=== PATIENT | female | born 1985 | race Caucasian/White ===

== ENCOUNTER 2016-08-28 11:13 | Emergency (ER) | payer OTHER ==
--- NOTE | 2016-08-28 12:44 | EDDOCDS ---
Physician Documentation [facility] Name: Nancy Hernandez Age: 30 yrs Sex: Female : 1985 Arrival Date: 08/28/2016 Time: 11:13 Bed Private MD: Ritu Solis D Disposition: 08/28/16 12:23 Discharged to Home/Self Care. Impression: Nausea and vomiting, Diarrhea, unspecified, related conditions, unspecified, first trimester. - Condition is Stable. - Discharge Instructions: First Trimester of , and Smoking. - Medication Reconciliation form. - Follow up: Alexandru Prakash MD; When: Call to arrange an appointment; Reason: Recheck today's complaints, Continuance of care. - Problem is an ongoing problem. - Symptoms are unchanged. Historical: - Allergies: No known drug Allergies; - Home Meds: 1. aspirin 81 mg Oral tab 1 tab once daily (Last dose: 08/27/2016) 2. Prometrium 200 mg oral cap 1 cap once daily (Last dose: 08/27/2016) 3. Vitamin Oral tab 1 tab once daily (Last dose: 08/27/2016) - PMHx: Scoliosis; - PSHx: none; - Social history: Smoking status: Patient uses tobacco products, light tobacco smoker. No barriers to communication noted, The patient speaks fluent [place]. - Family history: No immediate family members are acutely ill. - : The pt / caregiver states he / she is not on anticoagulants. Home medication list is obtained from the patient. - Exposure Risk Screening:: None identified. 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 11 in. (149.86 cm) (R); Pain 3/10; 11:16 Body Mass Index 23.83 (53.52 kg, 149.86 cm) elp MDM: 11:38 US 1st trimester Ordered. EDMS 12:06 Financial registration complete. lg 12:07 [facility] [place] Agreement was scanned into [employer] and attached to record. jp5 12:07 Undo -Financial registration. jp5 12:07 Financial registration complete. jp5 Signatures: Dispatcher [employer] EDElliot Funez, RN RN Soraida Zimmer RN RN Gila Sagastume, Reg Reg lg Maico Frias, PA-C PA-C cc10 Ivis Segovia jp5 The chart was reviewed and I authenticate all verbal orders and agree with the evaluation and treatment provided.Attachments: 12:07 [facility] [place] Agreement jp5 MTDD
--- NOTE | 2016-08-28 12:44 | REP ---
FIRST TRIMESTER ULTRASOUND: Real-time sonographic evaluation of the gravid uterus is performed utilizing transabdominal technique. There is a single living intrauterine gestation with the estimated gestational age of 11 weeks based on today's crown-rump length of 41 mm, EDC 03/19/2017. heart rate 173 beats per minute. There is a subchorionic hemorrhage on the left measuring 5.9 x 2.6 x 4.1 cm. Followup is suggested. Signed by Elliot Olson MD 08/28/2016 12:46 P
--- NOTE | 2016-08-28 12:44 | EDDOCDS ---
Nurse's Notes [facility] Name: Nancy Hernandez Age: 30 yrs Sex: Female : 1985 Arrival Date: 08/28/2016 Time: 11:13 Bed PR Private MD: Ritu Solis D Diagnosis: Nausea and vomiting;Diarrhea, unspecified; related conditions, unspecified, first trimester Presentation: 08/28 11:17 Presenting complaint: Patient states: 10 weeks , ate some food 2 days [facility] ago , nausea started yesterday with vomiting and diarrhea, stomach feels crampy. denies vaginal bleeding. Risk factors: the patient reports no vaginal bleeding. Adult Sepsis Screening: The patient does not have new or worsening altered mentation. Patient's respiratory rate is less than 22. Systolic blood pressure is greater than 100. Patient has a qSOFA score of 0- Negative Sepsis Screen. Suicide/Homicide risk assessment- the patient denies having any suicidal and/or homicidal ideations and does not present with any other emotional, behavioral or mental health complaints. Status: Patient is not a business services vice president or dependent. Transition of care: patient was not received from another setting of care. 11:17 Acuity: ZAIN Level 3 [facility] 11:17 Method Of Arrival: Walkin/Carried/Asstd [facility] Triage Assessment: 11:21 General: Appears in no apparent distress, Behavior is appropriate for age. Pain: [facility] Location: umbilical area Pain currently is 2 out of 10 on a pain scale. Quality of pain is described as gnawing. Pt Declines HIV testing. Neurological: Level of Consciousness is awake, alert, Oriented to person, place, time. Respiratory: Airway is patent Respiratory effort is even, unlabored, Respiratory pattern is regular, symmetrical. GI: Reports diarrhea, nausea, vomiting, Pain is 2 out of 10 on a pain scale. : Denies vaginal bleeding. Derm: Skin is pink, warm & dry. 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 aspirin 81 mg Oral tab 1 tab once daily (Last dose: 08/27/2016) 2. Prometrium 200 mg oral cap 1 cap once daily (Last dose: 08/27/2016) 3. Vitamin Oral tab 1 tab once daily (Last dose: 08/27/2016) - PMHx: Scoliosis; - PSHx: none; - Social history: Smoking status: Patient uses tobacco products, light tobacco smoker. No barriers to communication noted, The patient speaks fluent [place]. - Family history: No immediate family members are acutely ill. - : The pt / caregiver states he / she is not on anticoagulants. Home medication list is obtained from the patient. - Exposure Risk Screening:: None identified. Screenin:41 Screening information is obtained from the patient. Primary language is [place]. Fall dwg risk: No risks identified. Assistance ADL's: requires no assistance with activities of daily living. Abuse/DV Screen: The patient / caregiver reports he/she is: not in a situation that causes fear, pain or injury. Nutritional screening: No deficits noted. Advance Directives: Currently, there is no health care proxy. There is no active DNR order. There is no living will. There is no Power of Fitness Assistant. Advance directive information has not previously been placed in an [facility] medical record. Further advance directive information is declined. home support is adequate. Assessment: 12:40 The patient / caregiver is instructed regarding the plan of care and ED course. [facility] Physical assessment to be completed by PA/JENIFFER. Vital Signs: 11:16 BP 132 / 88; Pulse 81; Resp 18; Temp 98.6(O); Pulse Ox 99% on R/A; Weight 53.52 kg (R); elp Height 4 ft. 11 in. (149.86 cm) (R); Pain 3/10; 11:16 Body Mass Index 23.83 (53.52 kg, 149.86 cm) [facility] Vitals: 11:16 Log In Time: August 28, 2016 at 11:14. [facility] ED Course: 11:15 Patient visited by Nora Valera PCA. elp 11:15 Patient moved to Waiting el 11:16 Ritu Solis is Private Physician. elp 11:16 Patient visited by Nora Valera PCA. elp 11:16 Patient moved to Pre E elp 11:19 Triage Initiated [facility] 11:23 Maico Frias PA-C is [facility]. cc10 11:23 Emilie Morales MD is Attending Physician. cc10 11:23 Patient moved to Triage 3 [facility] 11:33 Patient visited by Maico Frias PA-C. cc10 11:33 Patient visited by Maico Frias PA-C. cc10 11:47 Patient moved to Ultrasound am10 11:50 Patient moved to TR3 rs6 11:50 Patient moved to Ultrasound rs6 11:58 Patient moved to TR3 am10 12:07 [facility] Payment Agreement was scanned into [employer] and attached to record. jp5 12:23 Alexandru Prakash MD is Referral Physician. cc10 12:35 Patient moved to PR1 / 25 dwg 12:42 No IV's were initiated during this patient's visit. No procedures done that require dwg assistance. 12:43 Patient has correct armband on for positive identification. Call light in reach. dwg Order Results: There are currently no results for this order. Outcome: 12:23 Discharge ordered by Provider. cc10 12:42 The following High Risk Discharge criteria are identified: None. Discharged to home dwg ambulatory. Condition: good Condition: stable. Ultrasound Study completed. 12:42 Discharge Assessment: Patient awake, alert and oriented x 3. No cognitive and/or dwg functional deficits noted. Patient verbalized understanding of disposition instructions. patient administered narcotics - no. The following High Risk Discharge criteria are identified: None. Property sent home with patient. 12:43 Patient left the ED. dwg Signatures: Elliot Lawrence RN RN [facility] Soraida Monsalve RN RN [facility] Angélica Ledezma am10 Nora Valera, SEAFOOD PACKER SEAFOOD PACKER elp Maico Frias PA-C PA-C cc10 Niki Crawford, SEAFOOD PACKER SEAFOOD PACKER rs6 Ivis Segovia jp5 MTDD
--- NOTE | 2016-08-30 13:45 | EDDOCDS ---
Nurse's Notes [facility] Name: Nancy Hernandez Age: 30 yrs Sex: Female : 1985 Arrival Date: 08/28/2016 Time: 11:13 Bed PR Private MD: Ritu Solis D Diagnosis: Nausea and vomiting;Diarrhea, unspecified; related conditions, unspecified, first trimester Presentation: 08/28 11:17 Presenting complaint: Patient states: 10 weeks , ate some food 2 days [facility] ago , nausea started yesterday with vomiting and diarrhea, stomach feels crampy. denies vaginal bleeding. Risk factors: the patient reports no vaginal bleeding. Adult Sepsis Screening: The patient does not have new or worsening altered mentation. Patient's respiratory rate is less than 22. Systolic blood pressure is greater than 100. Patient has a qSOFA score of 0- Negative Sepsis Screen. Suicide/Homicide risk assessment- the patient denies having any suicidal and/or homicidal ideations and does not present with any other emotional, behavioral or mental health complaints. 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 Transition of care: patient was not received from another setting of care. 11:17 Acuity: ZAIN Level 3 [facility] 11:17 Method Of Arrival: Walkin/Carried/Asstd [facility] Triage Assessment: 11:21 General: Appears in no apparent distress, Behavior is appropriate for age. Pain: [facility] Location: umbilical area Pain currently is 2 out of 10 on a pain scale. Quality of pain is described as gnawing. Pt Declines HIV testing. Neurological: Level of Consciousness is awake, alert, Oriented to person, place, time. Respiratory: Airway is patent Respiratory effort is even, unlabored, Respiratory pattern is regular, symmetrical. GI: Reports diarrhea, nausea, vomiting, Pain is 2 out of 10 on a pain scale. : Denies vaginal bleeding. Derm: Skin is pink, warm & dry. 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 aspirin 81 mg Oral tab 1 tab once daily (Last dose: 08/27/2016) 2. Prometrium 200 mg oral cap 1 cap once daily (Last dose: 08/27/2016) 3. Vitamin Oral tab 1 tab once daily (Last dose: 08/27/2016) - PMHx: Scoliosis; - PSHx: none; - Social history: Smoking status: Patient uses tobacco products, light tobacco smoker. No barriers to communication noted, The patient speaks fluent [place]ian. - Family history: No immediate family members are acutely ill. - : The pt / caregiver states he / she is not on anticoagulants. Home medication list is obtained from the patient. - Exposure Risk Screening:: None identified. Screenin:41 Screening information is obtained from the patient. Primary language is Lithuanian. Fall dwg risk: No risks identified. Assistance ADL's: requires no assistance with activities of daily living. Abuse/DV Screen: The patient / caregiver reports he/she is: not in a situation that causes fear, pain or injury. Nutritional screening: No deficits noted. Advance Directives: Currently, there is no health care proxy. There is no active DNR order. There is no living will. There is no Power of Marketing Automation Analyst. Advance directive information has not previously been placed in an [facility] medical record. Further advance directive information is declined. home support is adequate. Assessment: 12:40 The patient / caregiver is instructed regarding the plan of care and ED course. [facility] Physical assessment to be completed by PA/JENIFFER. Vital Signs: 11:16 BP 132 / 88; Pulse 81; Resp 18; Temp 98.6(O); Pulse Ox 99% on R/A; Weight 53.52 kg (R); elp Height 4 ft. 11 in. (149.86 cm) (R); Pain 3/10; 11:16 Body Mass Index 23.83 (53.52 kg, 149.86 cm) [facility] Vitals: 11:16 Log In Time: August 28, 2016 at 11:14. [facility] ED Course: 11:15 Patient visited by Nora Valera PCA. elp 11:15 Patient moved to Waiting el 11:16 Ritu Solis is Private Physician. elp 11:16 Patient visited by Nora Valera PCA. elp 11:16 Patient moved to Pre E elp 11:19 Triage Initiated [facility] 11:23 Maico Frias PA-C [facility]. cc10 11:23 Emilie Morales MD is Attending Physician. cc10 11:23 Patient moved to Triage 3 [facility] 11:33 Patient visited by Maico Frias PA-C. cc10 11:33 Patient visited by Maico Frias PA-C. cc10 11:47 Patient moved to Ultrasound am10 11:50 Patient moved to TR3 rs6 11:50 Patient moved to Ultrasound rs6 11:58 Patient moved to TR3 am10 12:07 [facility] Payment Agreement was scanned into [employer] and attached to record. jp5 12:23 Alexandru Prakash MD is Referral Physician. cc10 12:35 Patient moved to PR1 / 25 dwg 12:42 No IV's were initiated during this patient's visit. No procedures done that require dwg assistance. 12:43 Patient has correct armband on for positive identification. Call light in reach. dwg 12:56 US 1st trimester Returned. EDMS 14:26 T-Sheet-- Draft Copy was scanned into [employer] and attached to record. gb Order Results: Radiology Order: US 1st trimester Test: US 1st trimester REASON FOR EXAMINATION: Abdomen Pain; FIRST TRIMESTER ULTRASOUND:; ; Real-time sonographic evaluation of the gravid uterus is performed utilizing; transabdominal technique.; ; There is a single living intrauterine gestation with the estimated gestational; age of 11 weeks based on today's crown-rump length of 41 mm, EDC 03/19/2017.; heart rate 173 beats per minute. There is a subchorionic hemorrhage on the; left measuring 5.9 x 2.6 x 4.1 cm. Followup is suggested.; ; ; Signed by; Elliot Olson MD 08/28/2016 12:46 P; Outcome: 12:23 Discharge ordered by Provider. cc10 12:42 The following High Risk Discharge criteria are identified: None. Discharged to home dwg ambulatory. Condition: good Condition: stable. Ultrasound Study completed. 12:42 Discharge Assessment: Patient awake, alert and oriented x 3. No cognitive and/or dwg functional deficits noted. Patient verbalized understanding of disposition instructions. patient administered narcotics - no. The following High Risk Discharge criteria are identified: None. Property sent home with patient. 12:43 Patient left the ED. dwg Signatures: Dispatcher [employer] Elliot Sky, RN RN hennyg Soraida Monsalve, RN RN kpj Jennifer Peters, Reg Reg gb [place], Angélica am10 Olesyaen, Nora, LIFE INSURANCE ACTUARY LIFE INSURANCE ACTUARY elp Rodriguez, Maico, PA-C PA-C cc10 Yvette, Niki, LIFE INSURANCE ACTUARY LIFE INSURANCE ACTUARY rs6 Ivis Segovia jp5 Chart Complete MTDD
--- NOTE | 2016-08-30 13:45 | EDDOCDS ---
Physician Documentation [facility] Name: Nancy Hernandez Age: 30 yrs Sex: Female : 1985 Arrival Date: 08/28/2016 Time: 11:13 Bed Private MD: Ritu Solis D Disposition: 08/28/16 12:23 Discharged to Home/Self Care. Impression: Nausea and vomiting, Diarrhea, unspecified, related conditions, unspecified, first trimester. - Condition is Stable. - Discharge Instructions: First Trimester of , and Smoking. - Medication Reconciliation form. - Follow up: Alexandru Prakash MD; When: Call to arrange an appointment; Reason: Recheck today's complaints, Continuance of care. - Problem is an ongoing problem. - Symptoms are unchanged. Historical: - Allergies: No known drug Allergies; - Home Meds: 1. aspirin 81 mg Oral tab 1 tab once daily (Last dose: 08/27/2016) 2. Prometrium 200 mg oral cap 1 cap once daily (Last dose: 08/27/2016) 3. Vitamin Oral tab 1 tab once daily (Last dose: 08/27/2016) - PMHx: Scoliosis; - PSHx: none; - Social history: Smoking status: Patient uses tobacco products, light tobacco smoker. No barriers to communication noted, The patient speaks fluent [place]ian. - Family history: No immediate family members are acutely ill. - : The pt / caregiver states he / she is not on anticoagulants. Home medication list is obtained from the patient. - Exposure Risk Screening:: None identified. 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 11 in. (149.86 cm) (R); Pain 3/10; 11:16 Body Mass Index 23.83 (53.52 kg, 149.86 cm) elp MDM: 11:38 US 1st trimester Ordered. EDMS 12:06 Financial registration complete. lg 12:07 [facility] Payment Agreement was scanned into [employer] and attached to record. jp5 12: Undo -Financial registration. jp5 12: Financial registration complete. jp5 14:26 T-Sheet-- Draft Copy was scanned into [employer] and attached to record. gb Signatures: Dispatcher [employer] EDMS Elliot Lawrence, RN RN Soraida Zimmer RN RN kpJennifer Whitlock, Reg Reg gb Gila Carrillo, Reg Reg lg Maico Frias, PA-C PA-C cc10 Ivis Segovia jp5 The chart was reviewed and I authenticate all verbal orders and agree with the evaluation and treatment provided.Attachments: 12:07 [facility] Payment Agreement jp5 14:26 T-Sheet-- Draft Copy gb Chart Complete MTDD
--- NOTE | 2016-08-30 13:45 | EDDOCDS ---
Physician Documentation [facility] Name: Nancy Hernandez Age: 30 yrs Sex: Female : 1985 Arrival Date: 08/28/2016 Time: 11:13 Bed Private MD: Ritu Solis D Disposition: 08/28/16 12:23 Discharged to Home/Self Care. Impression: Nausea and vomiting, Diarrhea, unspecified, related conditions, unspecified, first trimester. - Condition is Stable. - Discharge Instructions: First Trimester of , and Smoking. - Medication Reconciliation form. - Follow up: Alexandru Prakash MD; When: Call to arrange an appointment; Reason: Recheck today's complaints, Continuance of care. - Problem is an ongoing problem. - Symptoms are unchanged. Historical: - Allergies: No known drug Allergies; - Home Meds: 1. aspirin 81 mg Oral tab 1 tab once daily (Last dose: 08/27/2016) 2. Prometrium 200 mg oral cap 1 cap once daily (Last dose: 08/27/2016) 3. Vitamin Oral tab 1 tab once daily (Last dose: 08/27/2016) - PMHx: Scoliosis; - PSHx: none; - Social history: Smoking status: Patient uses tobacco products, light tobacco smoker. No barriers to communication noted, The patient speaks fluent [place]guillan. - Family history: No immediate family members are acutely ill. - : The pt / caregiver states he / she is not on anticoagulants. Home medication list is obtained from the patient. - Exposure Risk Screening:: None identified. 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 11 in. (149.86 cm) (R); Pain 3/10; 11:16 Body Mass Index 23.83 (53.52 kg, 149.86 cm) elp MDM: 11:38 US 1st trimester Ordered. EDMS 12:06 Financial registration complete. lg 12:07 [facility] Payment Agreement was scanned into [employer] and attached to record. jp5 12: Undo -Financial registration. jp5 12: Financial registration complete. jp5 14:26 T-Sheet-- Draft Copy was scanned into [employer] and attached to record. gb Signatures: Dispatcher [employer] EDMS Elliot Lawrence, RN RN Soraida Zimmer RN RN kpJennifer Whitlock, Reg Reg gb Gila Carrillo, Reg Reg lg Maico Frias, PA-C PA-C cc10 Ivis Segovia jp5 The chart was reviewed and I authenticate all verbal orders and agree with the evaluation and treatment provided.Attachments: 12:07 [facility] Payment Agreement jp5 14:26 T-Sheet-- Draft Copy gb Chart Complete MTDD
== END 2016-08-28 12:43 | disposition home or self-care (01) ==
LOC: M ED 11:13
DX: O99.89 Other specified diseases and conditions complicating pregnancy, childbirth and the puerperium (principal); R11.2 Nausea with vomiting, unspecified; R19.7 Diarrhea, unspecified; Z3A.10 10 weeks gestation of pregnancy; Z79.899 Other long term (current) drug therapy; Z79.82 Long term (current) use of aspirin; O99.331 Smoking (tobacco) complicating pregnancy, first trimester; F17.210 Nicotine dependence, cigarettes, uncomplicated

== ENCOUNTER → 2016-08-29 | Outpatient (CLI) | payer OTHER ==
[2016-08-29 19:00] LABS: BASO % 0.3 % (0.0-1.0); EOS # 0.1 K/mm3 (0.0-0.50); EOS % 0.5 % (0.0-3.0); LARGE UNSTAINED CELL # 0.1 K/mm3 (0.0-0.4); LARGE UNSTAINED CELL % 0.9 % (0.0-4.0); LYMPH # 2.4 K/mm3 (1.5-6.5); LYMPH % 17.3 % (24.0-44.0); MEAN CORPUSCULAR HGB CONC 34.3 g/dl (32.0-36.5); MEAN CORPUSCULAR VOLUME 96.3 fl (80.0-96.0); MONO # 0.5 K/mm3 (0.0-0.8); MONO % 3.5 % (0.0-5.0); NEUTROPHILS # 10.6 K/mm3 (1.8-7.7); NEUTROPHILS % 77.5 % (36.0-66.0); PLATELET COUNT, AUTOMATED 256 k/mm3 (150-450); RED CELL DISTRIBUTION WIDTH 11.7 % (11.5-14.5); WHITE BLOOD COUNT 13.7 K/mm3 (4.0-10.0)
[2016-08-29 20:26] LABS: CONTROL LINE INT CTR LINE PRESENT; HIV SCRN NEGATIVE (NEGATIVE); HIV SCRN1 NEGATIVE (NEGATIVE)
[2016-09-01 11:31] LABS: HBsAg Prenatal NEGATIVE (NEGATIVE)
== END | disposition home or self-care (01) ==
LOC: M SMT 15:35
PROVIDERS: ATTEND Obstetrics & Gynecology
DX: Z34.83 Encounter for supervision of other normal pregnancy, third trimester (principal); Z36 Encounter for antenatal screening of mother; Z3A.00 Weeks of gestation of pregnancy not specified

== ENCOUNTER 2016-10-09 17:22 | Emergency (ER) | payer OTHER ==
[~2016-10-09] VITALS: Ht 149.9 cm; Wt 57.2 kg
[2016-10-09] MEDS ORDERED: PROGESTER (18:00)
[2016-10-09] MEDS ORDERED: PRENTAB40 PO (18:00)
[2016-10-09] MEDS ORDERED: ASPI81TA85 PO (18:00)
[2016-10-09] MEDS ORDERED: [UNRECOGNIZED DRUG - OTHER] EC (18:00)
[2016-10-09 20:46] LABS: BASO % 0.1 % (0.0-1.0); EOS % 0.3 % (0.0-3.0); LARGE UNSTAINED CELL # 0.2 K/mm3 (0.0-0.4); LARGE UNSTAINED CELL % 0.9 % (0.0-4.0); LYMPH # 2.5 K/mm3 (1.5-6.5); LYMPH % 15.4 % (24.0-44.0); MEAN CORPUSCULAR HEMOGLOBIN 33.3 pg (27.0-33.0); MEAN CORPUSCULAR HGB CONC 35.7 g/dl (32.0-36.5); MEAN CORPUSCULAR VOLUME 93.2 fl (80.0-96.0); MONO # 0.5 K/mm3 (0.0-0.8); MONO % 2.7 % (0.0-5.0); NEUTROPHILS # 13.3 K/mm3 (1.8-7.7); NEUTROPHILS % 80.6 % (36.0-66.0); PLATELET COUNT, AUTOMATED 249 k/mm3 (150-450); RED CELL DISTRIBUTION WIDTH 11.7 % (11.5-14.5); WHITE BLOOD COUNT 16.4 K/mm3 (4.0-10.0)
--- NOTE | 2016-10-09 21:50 | REPUSA ---
HISTORY: Bleeding. TECHNIQUE: Multiple sonographic images were obtained in multiple projections. Transabdominal techniqu e was utilized. COMMENTS: There is a single intrauterine gestation in presentation. The biparietal diameter measures mm. This corresponds to a gestational age of 16 weeks 6 days. The ab dominal circumference and femur length measure cm and mm respectively and are proportionate to the BP D. The HC:AC ratio is normal at 1.21. Estimated weight based on BPD is 168 grams. heart motion was observed, the rate is 153 bpm. The placenta is anterior, and free of the cervical os. There is evidence of chorioamniotic separation /abruption. The amniotic fluid volume is normal. The cervical length is 4.3 cm. IMPRESSION: Single living intrauterine fetus in a vertex position. motion was identified. heart rat e was documented at 153 bpm. The placenta is anterior, with evidence of chorioamniotic separation/abruption. Thank you for your kind referral of this patient. We appreciate the opportunity to participate in thi s patient's care.
[2016-10-10] MEDS: RHOGAM 300 MCG (1500 IU) INJ (J2790) IM SCH (00:40)
[2016-10-10 01:03] VITALS: BP 101/57
== END 2016-10-10 01:07 | disposition home or self-care (01) ==
LOC: M ED 18:48
DX: O20.0 Threatened abortion (principal); Z3A.16 16 weeks gestation of pregnancy; Z79.82 Long term (current) use of aspirin; Z79.899 Other long term (current) drug therapy
CPT/HCPCS: 36415; 76811; 85025; 86850; 86900; 86901; 96372; 99283; J2790

== ENCOUNTER → 2016-10-20 | Outpatient (CLI) | payer OTHER ==
[~2016-10-20] MED LIST: ASPI81TA85 PO; PRENTAB40 PO; PROGESTER; [UNRECOGNIZED DRUG - OTHER] EC
--- NOTE | 2016-10-20 15:51 | REP ---
Obstetric sonography: Limited study. History: Vaginal bleeding. Comparison sonography October 09 2016 showed evidence of subchorionic bleed. Findings: Limited sonography demonstrates a intrauterine gestation in a variable lie. heart rate is recorded at 150 beats per minute. Closed cervical length is 3.8 cm measured trans vaginally. No funneling is seen. A subchorionic bleed is again visualized, more to the left, measuring 9.8 x 1.1 x 4.0 cm. Signed by Daniele Clancy MD 10/20/2016 03:42 P
== END ==
LOC: M RAD 14:26
PROVIDERS: ATTEND Advanced Practice Midwife
DX: O26.852 Spotting complicating pregnancy, second trimester (principal); Z36 Encounter for antenatal screening of mother; Z3A.00 Weeks of gestation of pregnancy not specified

== ENCOUNTER → 2016-10-27 | Outpatient (CLI) | payer OTHER ==
--- NOTE | 2016-10-27 13:20 | REP ---
Clinical: Anatomical evaluation. Comparison: 10/20/2016 . Findings: Examination demonstrates a single live intrauterine in breech presentation. motion is identified by technologist. Placenta is noted anteriorly and grade zero without evidence for placenta previa or abruption. Amniotic fluid volume is normal. Cervix measures 3.0 in length and appears closed. No evidence for nuchal cord. Subchorionic hemorrhage is again identified measuring 11.6 x 0.8 x 1.3 cm and decreased from prior examination. Gestational age by LMP 18 weeks 6 days with STACEY 03/24/2017 . Gestational age by current measurements 19 weeks 4 days with STACEY 03/19/2017 . FHR equals 147 beats per minute. BPD 4.6 cm 19 weeks 6 days HC 16.5 cm 19 weeks 2 days AC 14.0 cm 19 weeks 3 days FL 3.1 cm 19 weeks 4 days HL 3.0 cm 19 weeks 6 days HC/AC ratio 1.18 Estimated weight 294 grams ( 69th percentile). Anatomical assessment demonstrates normal structures including cranium, choroid plexus, cavum, cerebellum/posterior fossa, facial features, lungs, four-chamber heart/ventricular outflow tracts, diaphragm, stomach, cord insertion/three-vessel cord, kidneys/bladder, spine, and extremities. Impression: Single live intrauterine in breech presentation demonstrating appropriate interval growth. Anatomical assessment is complete and normal. Subchorionic hemorrhage decreased in size from prior examination. Signed by Jay Vick MD 10/27/2016 01:12 P
== END ==
LOC: M RAD 11:47
PROVIDERS: ATTEND Advanced Practice Midwife
DX: Z36 Encounter for antenatal screening of mother (principal)

== ENCOUNTER → 2017-01-01 | Outpatient (CLI) | payer OTHER ==
[2017-01-01 17:57] LABS: MEAN CORPUSCULAR HEMOGLOBIN 33.4 pg (27.0-33.0); MEAN CORPUSCULAR HGB CONC 34.4 g/dl (32.0-36.5); RED CELL DISTRIBUTION WIDTH 12.5 % (11.5-14.5); WHITE BLOOD COUNT 14.4 K/mm3 (4.0-10.0)
== END ==
LOC: M SMT 13:06
PROVIDERS: ATTEND Advanced Practice Midwife
DX: Z31.82 Encounter for Rh incompatibility status (principal); Z34.82 Encounter for supervision of other normal pregnancy, second trimester

== ENCOUNTER → 2017-01-05 | Outpatient (CLI) | payer OTHER | LOC: M LAB 07:07 | PROVIDERS: ATTEND Specialist | DX: Z34.82 Encounter for supervision of other normal pregnancy, second trimester (principal); Z36 Encounter for antenatal screening of mother; Z3A.00 Weeks of gestation of pregnancy not specified ==

== ENCOUNTER → 2017-01-06 | Outpatient (CLI) | payer OTHER | LOC: M SMT 14:13 | PROVIDERS: ATTEND Obstetrics & Gynecology | DX: Z34.82 Encounter for supervision of other normal pregnancy, second trimester (principal); Z36 Encounter for antenatal screening of mother; Z3A.00 Weeks of gestation of pregnancy not specified ==

== ENCOUNTER 2017-02-18 22:09 | Emergency (ER) | payer OTHER ==
[~2017-02-18] VITALS: Ht 149.9 cm; Wt 64.5 kg
[2017-02-18] MEDS ORDERED: ACETAMINOPHEN TAB 650MG DOSE (2X325MG) PO ONE (23:30)
[2017-02-19 00:02] VITALS: BP 117/72
--- NOTE | 2017-02-19 07:31 | REP ---
Left wrist four views: There is a nondisplaced transverse fracture of the distal radius. Mineralization is normal. There is no dislocation. The skeletal structures and soft tissues otherwise are unremarkable. Impression: Nondisplaced distal radius fracture. Signed by Elliot Garcia MD 02/19/2017 07:22 A
[2017-02-20] MEDS ORDERED: RANI15TA PO (20:07)
== END 2017-02-19 00:11 | disposition home or self-care (01) ==
LOC: M ED 22:09
DX: O9A.213 Injury, poisoning and certain other consequences of external causes complicating pregnancy, third trimester (principal); S52.502A Unspecified fracture of the lower end of left radius, initial encounter for closed fracture; W19.XXXA Unspecified fall, initial encounter; Y92.009 Unspecified place in unspecified non-institutional (private) residence as the place of occurrence of the external cause; Y93.89 Activity, other specified; Y99.8 Other external cause status; Z3A.35 35 weeks gestation of pregnancy; O24.419 Gestational diabetes mellitus in pregnancy, unspecified control; Z87.891 Personal history of nicotine dependence

== ENCOUNTER 2017-02-20 19:57 | Emergency (ER) | payer OTHER ==
[~2017-02-20] VITALS: Ht 149.9 cm; Wt 63.6 kg
[2017-02-20 19:58] VITALS: BP 125/85
[2017-02-20] MEDS ORDERED: RANI15TA PO (20:07)
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
== END 2017-02-20 21:30 | disposition home or self-care (01) ==
LOC: M ED 19:57
DX: O9A.213 Injury, poisoning and certain other consequences of external causes complicating pregnancy, third trimester (principal); S52.502D Unspecified fracture of the lower end of left radius, subsequent encounter for closed fracture with routine healing; W19.XXXD Unspecified fall, subsequent encounter; Y92.009 Unspecified place in unspecified non-institutional (private) residence as the place of occurrence of the external cause; Y93.89 Activity, other specified; Y99.8 Other external cause status; Z46.89 Encounter for fitting and adjustment of other specified devices; Z87.891 Personal history of nicotine dependence; Z3A.35 35 weeks gestation of pregnancy

== ENCOUNTER → 2017-02-25 | Outpatient (REF) | payer OTHER ==
[~2017-02-25] MED LIST changes: +COLA100C5 PO; +FERR325T3 PO; +IBUP-1114 PO; +IBUP1TAB7 PO; +KEFL500C17 PO; +OXYC1TAB23 PO; +PERCOCET PO; +PRENTAB9 PO; +RANI15TA PO
== END ==
LOC: M LAB REF 17:08
PROVIDERS: ATTEND Advanced Practice Midwife
DX: Z34.83 Encounter for supervision of other normal pregnancy, third trimester (principal); Z36 Encounter for antenatal screening of mother; Z3A.00 Weeks of gestation of pregnancy not specified

== ENCOUNTER 2017-02-27 14:03 | Outpatient (CLI) | payer OTHER ==
[~2017-02-27] VITALS: Ht 152.4 cm; Wt 61.0 kg
[~2017-02-27 14:03] MED LIST changes: -COLA100C5 PO; -FERR325T3 PO; -IBUP-1114 PO; -IBUP1TAB7 PO; -KEFL500C17 PO; -OXYC1TAB23 PO; -PERCOCET PO; -PRENTAB9 PO
[2017-02-27 14:17] VITALS: BP 109/64
[2017-02-27] MEDS ORDERED: ACETAMINOPHEN 500 MG TAB PO PRN (15:30)
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
== END 2017-02-27 16:30 | disposition home or self-care (01) ==
LOC: M LDO 14:03
PROVIDERS: ATTEND Obstetrics & Gynecology
DX: O99.89 Other specified diseases and conditions complicating pregnancy, childbirth and the puerperium (principal); R10.811 Right upper quadrant abdominal tenderness; R10.813 Right lower quadrant abdominal tenderness; W18.09XA Striking against other object with subsequent fall, initial encounter; O47.03 False labor before 37 completed weeks of gestation, third trimester; O46.8X3 Other antepartum hemorrhage, third trimester; O24.419 Gestational diabetes mellitus in pregnancy, unspecified control; O99.343 Other mental disorders complicating pregnancy, third trimester; F32.9 Major depressive disorder, single episode, unspecified; F41.9 Anxiety disorder, unspecified; O99.333 Smoking (tobacco) complicating pregnancy, third trimester; Z86.19 Personal history of other infectious and parasitic diseases; O26.23 Pregnancy care for patient with recurrent pregnancy loss, third trimester; F12.21 Cannabis dependence, in remission; Z79.899 Other long term (current) drug therapy; Z3A.36 36 weeks gestation of pregnancy; Y92.099 Unspecified place in other non-institutional residence as the place of occurrence of the external cause; Y93.89 Activity, other specified; Y99.8 Other external cause status

== ENCOUNTER 2017-03-05 22:48 | Outpatient (CLI) | payer OTHER | END 2017-03-05 23:40 | disposition home or self-care (01) | LOC: M LDO 22:48 | PROVIDERS: ATTEND Specialist | DX: O36.8130 Decreased fetal movements, third trimester, not applicable or unspecified (principal); Z3A.37 37 weeks gestation of pregnancy; O47.1 False labor at or after 37 completed weeks of gestation ==

== ENCOUNTER 2017-03-25 05:20 | Inpatient (IN) | payer OTHER ==
[~2017-03-25] VITALS: Ht 149.9 cm; Wt 63.0 kg
[2017-03-25] VITALS (51 sets, daily range): BP systolic 100–160; BP diastolic 58–101
[2017-03-25] MEDS ORDERED: BUTORPHANOL 2 MG/ML INJ (J0595) IV ONE ×2 (06:00→10:15)
[2017-03-25] MEDS ORDERED: PROMETHAZINE INJ 25 MG/ML VIAL (J2550) IV ONE ×2 (06:00→10:15)
[2017-03-25 06:26] LABS: MEAN CORPUSCULAR HEMOGLOBIN 32.1 pg (27.0-33.0); MEAN CORPUSCULAR HGB CONC 34.6 g/dl (32.0-36.5); MEAN CORPUSCULAR VOLUME 92.8 fl (80.0-96.0); RED CELL DISTRIBUTION WIDTH 12.5 % (11.5-14.5); WHITE BLOOD COUNT 12.3 K/mm3 (4.0-10.0)
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
[2017-03-25] MEDS ORDERED: OXYTOCIN 30 UNITS IN 0.9% NaCl 500ML IV BAG (J2590) As Ordered ONE (07:36)
[2017-03-25] MEDS ORDERED: OXYTOCIN DRIP 30 UNITS in APPROPRIATE DILUENT 1 EA IV SCH (07:45)
[2017-03-25] MEDS: LR 1,000 ML IV SCH ×2 (08:01→14:16)
[2017-03-25] MEDS ORDERED: FENTANYL 2MCG/ML ROPIVACAINE 0.2% IN 0.9% NACL 200ML IVBAG As Ordered ONE (13:05)
[2017-03-25] MEDS ORDERED: LACTATED RINGER'S 1000 ML IV PRN (15:00)
[2017-03-25] MEDS ORDERED: ePHEDrine SULFATE 25 MG/5 ML(5MG/ML) SYRINGE IV PRN (15:00)
[2017-03-25] MEDS ORDERED: FENTANYL/ROPIVACAINE/NACL BAG 200 ML EPIDURAL SCH (15:00)
[2017-03-25] MEDS ORDERED: REFRIGERATOR IV KEYS XX PRN (15:00)
[2017-03-25] MEDS ORDERED: EPIDURAL COMMENT XX SCH (15:00)
[2017-03-25] MEDS ORDERED: diphenhydrAMINE INJ 50MG/ML VIAL (J1200) IV PRN (15:00)
[2017-03-25] MEDS ORDERED: EPIDURAL/PCA KEYS XX PRN (15:00)
[2017-03-25] MEDS ORDERED: NALOXONE INJ 0.4 MG/1 ML VIAL (J2310) IV PRN (15:00)
[2017-03-25] MEDS ORDERED: ONDANSETRON 4MG/2ML VIAL (J2405) IV PRN (15:00)
[2017-03-26] VITALS (8 sets, daily range): BP systolic 115–153; BP diastolic 63–89
[2017-03-26] MEDS ORDERED: ceFAZolin 2 GM/D5W 50 ML IV BAG (J0690) As Ordered ONE (00:17)
[2017-03-26] MEDS ORDERED: BICITRA 30ML SOLN UDC As Ordered ONE (00:17)
[2017-03-26] MEDS ORDERED: MORPHINE PRES-FREE INJ 10 MG/10 ML VIAL (J2274) As Ordered ONE (00:29)
[2017-03-26] MEDS ORDERED: OXYTOCIN INJ 10 UNITS/ML VIAL (J2590) As Ordered ONE ×2 (00:31→01:18)
[2017-03-26] MEDS ORDERED: BICITRA 30ML SOLN UDC PO ONE (00:45)
[2017-03-26] MEDS ORDERED: METOCLOPRAMIDE INJ 10MG/2ML VIAL (J2765) IV PRN ×2 (01:00→02:15)
[2017-03-26] MEDS ORDERED: NALOXONE INJ 0.4 MG/1 ML VIAL (J2310) IV PRN ×2 (01:00)
[2017-03-26] MEDS ORDERED: NALBUPHINE HCL 10 MG/ML AMP (J2300) IV PRN ×2 (01:00→02:15)
[2017-03-26] MEDS ORDERED: ONDANSETRON 4MG/2ML VIAL (J2405) As Ordered ONE (01:05)
[2017-03-26] MEDS ORDERED: KETOROLAC 60 MG/2 ML VIAL (J1885) As Ordered ONE (01:05)
[2017-03-26] MEDS ORDERED: MEPERIDINE 50 MG/ML 1ML VIAL (J2175) As Ordered ONE (01:21)
[2017-03-26] MEDS ORDERED: ESMOLOL INJ 100MG/10ML VIAL As Ordered ONE (01:33)
[2017-03-26] MEDS: LR 1,000 ML IV SCH ×3 (02:02→18:02)
[2017-03-26] MEDS ORDERED: OXYTOCIN DRIP 30 UNITS in APPROPRIATE DILUENT 1 EA IV SCH (02:02)
[2017-03-26] MEDS ORDERED: LR 1,000 ML IV SCH (02:15)
[2017-03-26] MEDS ORDERED: ONDANSETRON 4MG/2ML VIAL (J2405) IV PRN ×2 (02:15)
[2017-03-26] MEDS ORDERED: RHOGAM 300 MCG (1500 IU) INJ (J2790) IM SCH (02:15)
[2017-03-26] MEDS ORDERED: fentaNYL 100 MCG/2 ML INJECTION (J3010) IV PRN (02:15)
[2017-03-26] MEDS ORDERED: PERCOCET 5MG/325MG TAB PO PRN ×2 (02:15)
[2017-03-26] MEDS ORDERED: MEASLES,MUMPS,RUBELLA VACCINE INJ (MMR-II) (90707) SC SCH (02:15)
[2017-03-26] MEDS ORDERED: HYDROmorphone HCL 1 MG/ML SYRINGE (J1170) IV PRN (02:15)
[2017-03-26] MEDS ORDERED: PROMETHAZINE 25 MG TAB PO PRN (02:15)
[2017-03-26] MEDS: PERCOCET 5MG/325MG TAB PO PRN ×2 (05:16→13:46)
[2017-03-26] MEDS: PRENATAL VITAMINS CHEWABLE TABLET PO SCH (08:12)
[2017-03-26] MEDS: DOCUSATE SODIUM 100 MG CAP PO SCH ×2 (08:12→21:00)
[2017-03-26] MEDS: KETOROLAC 30 MG/ML VIAL (J1885) IV SCH ×3 (08:13→19:58)
[2017-03-27] VITALS (7 sets, daily range): BP systolic 118–172; BP diastolic 69–91
[2017-03-27] MEDS: KETOROLAC 30 MG/ML VIAL (J1885) IV SCH (00:59)
[2017-03-27] MEDS: PERCOCET 5MG/325MG TAB PO PRN ×4 (05:17→22:23)
[2017-03-27 07:03] LABS: MEAN CORPUSCULAR HGB CONC 34.1 g/dl (32.0-36.5); RED CELL DISTRIBUTION WIDTH 12.6 % (11.5-14.5); WHITE BLOOD COUNT 16.8 K/mm3 (4.0-10.0)
[2017-03-27] MEDS: LR 1,000 ML IV SCH (08:00)
[2017-03-27] MEDS: FERROUS SULFATE 325MG TAB PO SCH ×2 (09:00→20:16)
[2017-03-27] MEDS: IBUPROFEN 800 MG TAB PO SCH ×2 (09:25→18:17)
[2017-03-27] MEDS: DOCUSATE SODIUM 100 MG CAP PO SCH ×2 (09:25→20:16)
[2017-03-27] MEDS: PRENATAL VITAMINS CHEWABLE TABLET PO SCH (09:25)
[2017-03-28] MEDS: IBUPROFEN 800 MG TAB PO SCH ×4 (00:45→17:36)
[2017-03-28] MEDS: PERCOCET 5MG/325MG TAB PO PRN ×5 (04:22→21:29)
[2017-03-28 05:55] VITALS: BP 135/84
[2017-03-28 06:43] LABS: MEAN CORPUSCULAR HEMOGLOBIN 32.1 pg (27.0-33.0); MEAN CORPUSCULAR HGB CONC 34.1 g/dl (32.0-36.5); MEAN CORPUSCULAR VOLUME 94.1 fl (80.0-96.0); RED CELL DISTRIBUTION WIDTH 12.9 % (11.5-14.5); WHITE BLOOD COUNT 12.1 K/mm3 (4.0-10.0)
[2017-03-28] MEDS: FERROUS SULFATE 325MG TAB PO SCH ×2 (08:39→21:28)
[2017-03-28] MEDS: PRENATAL VITAMINS CHEWABLE TABLET PO SCH (08:39)
[2017-03-28] MEDS: DOCUSATE SODIUM 100 MG CAP PO SCH ×2 (08:39→21:28)
[2017-03-28 18:37] VITALS: BP 142/85
[2017-03-29] MEDS: IBUPROFEN 800 MG TAB PO SCH ×2 (02:16→09:36)
[2017-03-29] MEDS: PERCOCET 5MG/325MG TAB PO PRN ×3 (02:16→12:44)
[2017-03-29 06:10] VITALS: BP 133/73
[2017-03-29] MEDS: PRENATAL VITAMINS CHEWABLE TABLET PO SCH (08:07)
[2017-03-29] MEDS: DOCUSATE SODIUM 100 MG CAP PO SCH (08:07)
[2017-03-29] MEDS: FERROUS SULFATE 325MG TAB PO SCH (08:07)
[2017-03-29] MEDS ORDERED: COLA100C5 PO (08:33)
[2017-03-29] MEDS ORDERED: PRENTAB9 PO (08:34)
[2017-03-29] MEDS ORDERED: FERR325T3 PO (08:35)
[2017-03-29] MEDS ORDERED: IBUP-1114 PO (08:35)
[2017-03-29] MEDS ORDERED: OXYC1TAB23 PO ×2 (08:36→08:37)
[2017-03-29] MEDS ORDERED: PERCOCET PO (14:12)
[2017-03-29] MEDS ORDERED: IBUP1TAB7 PO (14:14)
== END 2017-03-29 13:45 | disposition home or self-care (01) | DRG 540 ==
LOC: M LDO 05:20 → M LDI 05:47 → M OBS 03-26 03:48
PROVIDERS: ADMIT Advanced Practice Midwife; ATTEND Obstetrics & Gynecology
PROC: 10D00Z1 Extraction of Products of Conception, Low, Open Approach (ICD-10-PCS; principal; 2017-03-26)
DX: O48.0 Post-term pregnancy (principal); O24.420 Gestational diabetes mellitus in childbirth, diet controlled; Z3A.40 40 weeks gestation of pregnancy; O99.334 Smoking (tobacco) complicating childbirth; F17.210 Nicotine dependence, cigarettes, uncomplicated; O99.344 Other mental disorders complicating childbirth; F41.9 Anxiety disorder, unspecified; O62.0 Primary inadequate contractions; O99.03 Anemia complicating the puerperium; D64.9 Anemia, unspecified; Z37.0 Single live birth

== ENCOUNTER 2017-04-02 12:41 | Inpatient (IN) | payer OTHER ==
[~2017-04-02] VITALS: Ht 152.4 cm; Wt 56.0 kg
[~2017-04-02 12:41] MED LIST changes: +COLA100C5 PO; +FERR325T3 PO; +IBUP-1114 PO; +IBUP1TAB7 PO; +OXYC1TAB23 PO; +PERCOCET PO; +PRENTAB9 PO
[2017-04-02] MEDS ORDERED: PERCOCET 5MG/325MG TAB PO PRN (13:30)
[2017-04-02] MEDS ORDERED: ONDANSETRON 4MG/2ML VIAL (J2405) IV PRN (13:30)
[2017-04-02] MEDS: PERCOCET 5MG/325MG TAB PO PRN ×2 (14:36→20:25)
[2017-04-02 14:39] VITALS: BP 148/81
[2017-04-02 15:06] LABS: MEAN CORPUSCULAR HEMOGLOBIN 32.1 pg (27.0-33.0); MEAN CORPUSCULAR HGB CONC 34.5 g/dl (32.0-36.5); MEAN CORPUSCULAR VOLUME 92.9 fl (80.0-96.0); RED CELL DISTRIBUTION WIDTH 12.9 % (11.5-14.5); WHITE BLOOD COUNT 13.8 K/mm3 (4.0-10.0)
--- NOTE | 2017-04-02 15:20 | REP ---
SINGLE AP CHEST X-RAY: HISTORY: Postoperative fever. Comparison study January 05, 2010. FINDINGS: The lungs are well inflated and clear. Pleural angles are sharp. Heart is not enlarged. Pulmonary vasculature is not increased. There is a dextroconvex lumbar scoliotic curve. IMPRESSION: Negative AP chest x-ray. Signed by Daniele Clancy MD 04/03/2017 10:05 A
[2017-04-02] MEDS: AMPICILLIN SOD/SULBACTAM SOD 3 GM in D5W MINI-BAG PLUS 100 ML IV SCH ×2 (15:25→20:25)
[2017-04-02 16:00] VITALS: BP 123/66
[2017-04-02 20:00] VITALS: BP 134/80
[2017-04-02] MEDS: DOCUSATE SODIUM 100 MG CAP PO SCH (20:25)
[2017-04-03] VITALS: BP 132/75
[2017-04-03] MEDS: PERCOCET 5MG/325MG TAB PO PRN ×5 (00:43→23:16)
[2017-04-03] MEDS: AMPICILLIN SOD/SULBACTAM SOD 3 GM in D5W MINI-BAG PLUS 100 ML IV SCH ×4 (02:50→20:28)
[2017-04-03] MEDS: MORPHINE 4 MG/ML 1ML SYRINGE IV PRN ×2 (02:50→09:14)
[2017-04-03 08:00] VITALS: BP 130/80
[2017-04-03] MEDS: DOCUSATE SODIUM 100 MG CAP PO SCH ×2 (09:14→20:28)
[2017-04-03 10:13] LABS: BASO % 0.3 % (0.0-1.0); EOS # 0.2 K/mm3 (0.0-0.50); EOS % 1.3 % (0.0-3.0); LARGE UNSTAINED CELL # 0.2 K/mm3 (0.0-0.4); LARGE UNSTAINED CELL % 1.3 % (0.0-4.0); LYMPH # 1.9 K/mm3 (1.5-4.5); LYMPH % 13.5 % (24.0-44.0); MEAN CORPUSCULAR HEMOGLOBIN 30.8 pg (27.0-33.0); MEAN CORPUSCULAR HGB CONC 32.1 g/dl (32.0-36.5); MEAN CORPUSCULAR VOLUME 95.9 fl (80.0-96.0); MONO # 0.6 K/mm3 (0.0-0.8); MONO % 4.7 % (0.0-5.0); NEUTROPHILS # 10.3 K/mm3 (1.8-7.7); NEUTROPHILS % 78.9 % (36.0-66.0); PLATELET COUNT, AUTOMATED 628 k/mm3 (150-450); RED CELL DISTRIBUTION WIDTH 12.9 % (11.5-14.5); WHITE BLOOD COUNT 13.1 K/mm3 (4.0-10.0)
[2017-04-03 10:20] LABS: INR 1.07
[2017-04-03 12:11] LABS: ALBUMIN 2.3 GM/DL (3.2-5.2); ALKALINE PHOSPHATASE 153 U/L (45-117); ALT/SGPT 26 U/L (12-78); ANION GAP 7 MEQ/L (8-16); AST/SGOT 25 U/L (15-37); BILIRUBIN,TOTAL 0.5 MG/DL (0.2-1.0); BLOOD UREA NITROGEN 16 MG/DL (7-18); CALCIUM LEVEL 8.9 MG/DL (8.5-10.1); CARBON DIOXIDE LEVEL 28 MEQ/L (21-32); CHLORIDE LEVEL 102 MEQ/L (98-107); CREATININE FOR GFR 0.84 MG/DL (0.55-1.02); GLOMERULAR FILTRATION RATE > 60.0 (>60); GLUCOSE, FASTING 108 MG/DL (70-105); SODIUM LEVEL 137 MEQ/L (136-145); TOTAL PROTEIN 7.1 GM/DL (6.4-8.2)
[2017-04-03 12:14] LABS: ALBUMIN/GLOBULIN RATIO 0.48 (1.00-1.93)
[2017-04-03 16:00] VITALS: BP 133/67
[2017-04-03 20:00] VITALS: BP 123/80
[2017-04-04] MEDS: PERCOCET 5MG/325MG TAB PO PRN ×4 (03:33→21:03)
[2017-04-04] MEDS: AMPICILLIN SOD/SULBACTAM SOD 3 GM in D5W MINI-BAG PLUS 100 ML IV SCH ×4 (03:33→21:03)
[2017-04-04 04:00] VITALS: BP 136/80
[2017-04-04] MEDS: MORPHINE 4 MG/ML 1ML SYRINGE IV PRN ×4 (04:28→19:48)
[2017-04-04 08:00] VITALS: BP 116/70
[2017-04-04] MEDS: DOCUSATE SODIUM 100 MG CAP PO SCH ×2 (10:30→21:03)
[2017-04-04 13:31] LABS: MEAN CORPUSCULAR HEMOGLOBIN 30.6 pg (27.0-33.0); MEAN CORPUSCULAR HGB CONC 32.9 g/dl (32.0-36.5); MEAN CORPUSCULAR VOLUME 93.1 fl (80.0-96.0); RED CELL DISTRIBUTION WIDTH 12.7 % (11.5-14.5); WHITE BLOOD COUNT 15.7 K/mm3 (4.0-10.0)
[2017-04-04 16:00] VITALS: BP 122/71
[2017-04-04 20:00] VITALS: BP 133/87
[2017-04-05] VITALS: BP 130/80
[2017-04-05] MEDS: MORPHINE 4 MG/ML 1ML SYRINGE IV PRN ×3 (00:42→12:45)
[2017-04-05] MEDS: PERCOCET 5MG/325MG TAB PO PRN ×5 (01:34→23:10)
[2017-04-05] MEDS: AMPICILLIN SOD/SULBACTAM SOD 3 GM in D5W MINI-BAG PLUS 100 ML IV SCH ×2 (02:58→08:09)
[2017-04-05 07:06] LABS: INR 1.01
[2017-04-05 07:11] LABS: MEAN CORPUSCULAR HEMOGLOBIN 30.6 pg (27.0-33.0); MEAN CORPUSCULAR HGB CONC 32.5 g/dl (32.0-36.5); RED CELL DISTRIBUTION WIDTH 12.7 % (11.5-14.5); WHITE BLOOD COUNT 15.9 K/mm3 (4.0-10.0)
[2017-04-05] MEDS: DOCUSATE SODIUM 100 MG CAP PO SCH ×2 (08:09→20:35)
[2017-04-05] MEDS: FERROUS SULFATE 325MG TAB PO SCH ×2 (12:05→20:35)
[2017-04-05] MEDS ORDERED: OXYC1TAB23 PO (13:19)
[2017-04-05] MEDS ORDERED: KEFL500C17 PO (13:21)
[2017-04-05 14:00] VITALS: BP 119/72
[2017-04-05] MEDS: CEPHALEXIN 500 MG CAP PO SCH ×2 (14:57→20:35)
[2017-04-05 20:00] VITALS: BP 131/79
[2017-04-06] MEDS: PERCOCET 5MG/325MG TAB PO PRN ×5 (03:00→20:07)
[2017-04-06 04:00] VITALS: BP_SYST 118
[2017-04-06] MEDS: DOCUSATE SODIUM 100 MG CAP PO SCH ×2 (07:08→20:06)
[2017-04-06] MEDS: CEPHALEXIN 500 MG CAP PO SCH ×2 (07:08→20:06)
[2017-04-06] MEDS: FERROUS SULFATE 325MG TAB PO SCH ×2 (07:08→20:06)
[2017-04-06 07:25] LABS: MEAN CORPUSCULAR HEMOGLOBIN 30.8 pg (27.0-33.0); MEAN CORPUSCULAR HGB CONC 32.9 g/dl (32.0-36.5); MEAN CORPUSCULAR VOLUME 93.7 fl (80.0-96.0); RED CELL DISTRIBUTION WIDTH 12.8 % (11.5-14.5); WHITE BLOOD COUNT 17.7 K/mm3 (4.0-10.0)
[2017-04-06 07:34] LABS: INR 1.02
[2017-04-06 08:00] VITALS: BP 114/70
[2017-04-06] MEDS ORDERED: ISOVUE-370 76% 100ML VIAL (Q9967) As Ordered ONE (09:55)
--- NOTE | 2017-04-06 10:28 | REP ---
Clinical: Evaluate hematoma. Technique: Axial contrast enhanced images from the lung bases to the pubic symphysis using 100 ml Isovue 370 intravenous contrast material with coronal and sagittal re-formations. Findings: There is a 10.0 x 8.5 x 2.6 cm midline ventral hematoma which is deep to the anterior rectus sheath and does not extend into the peritoneum. A superficially placed catheter is identified on the right anterior pelvic wall which does not penetrate the skin surface and requires correlation. Liver, spleen, pancreas, gallbladder, bilateral adrenal glands and kidneys are relatively normal. Bilateral renal cysts are identified. The enteric system is without obstruction or acute inflammatory process. The pelvis demonstrates appearance to the uterus and normal bladder. No significant ascites. No free air. No obvious adenopathy. Vasculature appears normal. Surrounding musculoskeletal structures are grossly intact. Lung bases are clear. Impression: 1. Anterior midline ventral hematoma deep to the anterior rectus sheath and superficial to the peritoneum. 2. Catheter on the superficial right anterior abdominopelvic wall which does not penetrate through the skin surface and requires correlation. 3. appearance to the uterus. Signed by Jay Vick MD 04/06/2017 10:20 A
[2017-04-06] MEDS ORDERED: zolPIDEM TARTRATE 5 MG TAB PO PRN (12:00)
[2017-04-06 16:00] VITALS: BP 122/72
[2017-04-06 20:00] VITALS: BP 110/76
[2017-04-07] VITALS: BP 116/72
[2017-04-07] MEDS: PERCOCET 5MG/325MG TAB PO PRN ×2 (00:22→04:49)
[2017-04-07 04:00] VITALS: BP 151/78
[2017-04-07 08:00] VITALS: BP 112/78
[2017-04-07] MEDS: FERROUS SULFATE 325MG TAB PO SCH (08:44)
[2017-04-07] MEDS: CEPHALEXIN 500 MG CAP PO SCH (08:44)
[2017-04-07] MEDS: DOCUSATE SODIUM 100 MG CAP PO SCH (08:44)
== END 2017-04-07 10:25 | disposition home or self-care (01) | DRG 561 ==
LOC: PREOBSVTOIN 13:40 → M PED 13:41
PROVIDERS: ADMIT Obstetrics & Gynecology; ATTEND Obstetrics & Gynecology
DX: O90.0 Disruption of cesarean delivery wound (principal); O90.2 Hematoma of obstetric wound; O72.3 Postpartum coagulation defects

== ENCOUNTER → 2017-06-16 | Outpatient (CLI) | payer OTHER ==
[~2017-06-16] MED LIST changes: +GASTROGRAFIN SOLUTION 30ML (Q9963) As Ordered ONE; +ISOVUE-370 76% 100ML VIAL (Q9967) As Ordered ONE; +KEFL500C17 PO
--- NOTE | 2017-06-16 14:26 | REP ---
Clinical: Follow up hematoma. Technique: Axial contrast enhanced images from the lung bases to the thoracic inlet using oral and 100 ml Isovue 370 intravenous contrast material with precontrast and delayed images of the abdomen as well as coronal and sagittal re-formations. Comparison: 04/06/2017. Findings: The previously identified hematoma in the anterior pelvic subcutaneous tissues/rectus musculature as near completely resolved with only a small residual of triangular area of fluid measuring roughly 2.1 x 0.7 x 1.6 cm (images 94 - 101). Liver, spleen, pancreas, gallbladder, bilateral adrenal glands and kidneys are normal / stable. The kidneys again demonstrate nonobstructing renal calculi measuring up to 4 mm and bilateral cysts measuring up to 1.6 cm. The enteric system is without obstruction or acute inflammatory process. Pelvis demonstrates normal bladder and age-appropriate uterus/adnexa. No pelvic fluid or ascites. No free air. No adenopathy. Abdominal aorta and vasculature appears normal. Surrounding musculoskeletal structures are intact. Impression: 1. Hematoma in the anterior pelvic subcutaneous tissues and rectus musculature has near completely resolved. 2. Nephrolithiasis and renal cysts are unchanged. 3. No new acute abdominopelvic pathology appreciated. Signed by Jay Vick MD 06/16/2017 02:18 P
== END ==
LOC: M RAD 12:04
PROVIDERS: ATTEND Obstetrics & Gynecology
DX: M96.841 Postprocedural hematoma of a musculoskeletal structure following other procedure (principal)
CPT/HCPCS: 74178; Q9963; Q9967

== ENCOUNTER → 2017-08-28 | Outpatient (CLI) | payer OTHER | LOC: M PAIN 10:15 | DX: G89.28 Other chronic postprocedural pain (principal); R10.9 Unspecified abdominal pain; R51 Headache; Z79.899 Other long term (current) drug therapy; Z98.890 Other specified postprocedural states; Z87.891 Personal history of nicotine dependence | CPT/HCPCS: G0463 ==

== ENCOUNTER → 2017-09-30 | Outpatient (CLI) | payer OTHER ==
[2017-09-30 20:56] LABS: HCG, SERUM QUANTITATIVE 150 MIU/ML
== END ==
LOC: M SMT 14:42
DX: N91.2 Amenorrhea, unspecified (principal)
CPT/HCPCS: 84702

== ENCOUNTER → 2017-10-02 | Outpatient (CLI) | payer OTHER ==
[2017-10-02 18:41] LABS: HCG, SERUM QUANTITATIVE 492 MIU/ML
== END ==
LOC: M SMT 13:35
DX: N91.2 Amenorrhea, unspecified (principal)
CPT/HCPCS: 84702

== ENCOUNTER 2017-10-07 14:02 | Emergency (ER) | payer OTHER ==
[2017-10-07 17:02] LABS: APPEARANCE, URINE HAZY (CLEAR); BACTERIA, URINE AUTO 1+ (NEGATIVE); BILIRUBIN, URINE AUTO NEGATIVE (NEGATIVE); BLOOD, URINE BLOOD 1+ (NEGATIVE); COLOR, URINE YELLOW (YELLOW); GLUCOSE, URINE (UA) AUTO NEGATIVE (NEGATIVE); KETONE, URINE AUTO NEGATIVE (NEGATIVE); LEUKOCYTE ESTERASE, URINE AUTO TRACE (NEGATIVE); MUCUS, URINE SMALL (NEGATIVE); NITRITE, URINE AUTO POSITIVE (NEGATIVE); PROTEIN, URINE AUTO NEGATIVE (NEGATIVE); RBC, URINE AUTO 2 /HPF (0-3); SQUAMOUS EPITHELIAL CELL UR AU 2 /HPF (0-6); UROBILINOGEN, URINE AUTO 0.2 mg/dL (0.0-2.0); WBC, URINE AUTO 5 /HPF (0-3)
[2017-10-07 17:57] LABS: HCG, SERUM QUANTITATIVE 2503 MIU/ML
== END 2017-10-07 18:40 | disposition home or self-care (01) ==
LOC: M ED 14:02
DX: O20.8 Other hemorrhage in early pregnancy (principal); Z3A.01 Less than 8 weeks gestation of pregnancy; Z79.899 Other long term (current) drug therapy
CPT/HCPCS: 76801

== ENCOUNTER → 2017-10-09 | Outpatient (CLI) | payer OTHER ==
[2017-10-09 14:29] LABS: HCG, SERUM QUANTITATIVE 1288 MIU/ML
== END ==
LOC: M SMT 09:33
DX: O20.9 Hemorrhage in early pregnancy, unspecified (principal); Z3A.00 Weeks of gestation of pregnancy not specified
CPT/HCPCS: 84702

== ENCOUNTER → 2017-10-12 | Outpatient (CLI) | payer OTHER ==
[2017-10-13 09:31] LABS: RH ONLY RHOGAM 1 1
== END ==
LOC: M LAB 17:12
DX: O02.1 Missed abortion (principal)
CPT/HCPCS: 36415

== ENCOUNTER → 2018-01-13 | Outpatient (REF) | payer OTHER ==
[2018-01-13 21:41] LABS: CHLAMYDIA DNA AMPLIFICATION NEGATIVE (NEGATIVE); GC DNA AMPLIFICATION NEGATIVE (NEGATIVE)
[2018-01-15 14:14] LABS: HPV HYBRID CAPTURE II Negative (Negative)
== END ==
LOC: M LAB REF 17:23
DX: Z12.4 Encounter for screening for malignant neoplasm of cervix (principal); Z11.3 Encounter for screening for infections with a predominantly sexual mode of transmission
CPT/HCPCS: 87591

== ENCOUNTER → 2018-04-13 | Outpatient (CLI) | payer OTHER ==
[2018-04-13 11:01] LABS: BASO % 0.4 % (0.0-1.0); EOS # 0.2 10^3/uL (0.0-0.50); EOS % 1.4 % (0.0-3.0); HEMATOCRIT 42.8 % (36.0-47.0); HEMOGLOBIN 14.5 g/dl (12.0-15.5); IMMATURE GRANULOCYTE % 0.4 % (0-3.0); LYMPH # 2.4 10^3/uL (1.5-4.5); LYMPH % 22.4 % (24.0-44.0); MEAN CORPUSCULAR HEMOGLOBIN 32.4 pg (27.0-33.0); MEAN CORPUSCULAR HGB CONC 33.9 g/dl (32.0-36.5); MEAN CORPUSCULAR VOLUME 95.5 fl (80.0-96.0); MONO # 0.6 10^3/uL (0.0-0.8); MONO % 5.8 % (0.0-5.0); NEUTROPHILS # 7.4 10^3/uL (1.8-7.7); NEUTROPHILS % 69.6 % (36.0-66.0); PLATELET COUNT, AUTOMATED 256 10^3/uL (150-450); RED BLOOD COUNT 4.48 10^6/uL (4.00-5.40); RED CELL DISTRIBUTION WIDTH 12.5 % (11.5-14.5); WHITE BLOOD COUNT 10.7 10^3/uL (4.0-10.0)
[2018-04-13 13:51] LABS: CHLAMYDIA DNA AMPLIFICATION NEGATIVE (NEGATIVE); GC DNA AMPLIFICATION NEGATIVE (NEGATIVE)
[2018-04-13 16:24] LABS: HBsAg Prenatal NEGATIVE (NEGATIVE)
[2018-04-13 16:24] LABS: HEPATITIS C VIRUS ABY INDEX 0.1 INDEX (<0.8)
[2018-04-13 16:25] LABS: RUBELLA IgG QUALITATIVE IMMUNE (IMMUNE)
[2018-04-14 14:15] LABS: HIV 1&2 SCREEN CENTAUR NEGATIVE (NEGATIVE)
== END ==
LOC: M SMT 09:33
DX: Z36.89 Encounter for other specified antenatal screening (principal)
CPT/HCPCS: 86762

== ENCOUNTER 2018-04-23 11:05 | Emergency (ER) | payer OTHER ==
[2018-04-23 11:39] LABS: BASO % 0.2 % (0.0-1.0); EOS # 0.1 10^3/uL (0.0-0.50); HEMATOCRIT 41.6 % (36.0-47.0); HEMOGLOBIN 14.5 g/dl (12.0-15.5); IMMATURE GRANULOCYTE % 0.3 % (0-3.0); LYMPH # 2.5 10^3/uL (1.5-4.5); LYMPH % 19.4 % (24.0-44.0); MEAN CORPUSCULAR HGB CONC 34.9 g/dl (32.0-36.5); MEAN CORPUSCULAR VOLUME 94.8 fl (80.0-96.0); MONO # 0.6 10^3/uL (0.0-0.8); MONO % 4.6 % (0.0-5.0); NEUTROPHILS # 9.7 10^3/uL (1.8-7.7); NEUTROPHILS % 74.5 % (36.0-66.0); PLATELET COUNT, AUTOMATED 266 10^3/uL (150-450); RED BLOOD COUNT 4.39 10^6/uL (4.00-5.40); RED CELL DISTRIBUTION WIDTH 12.6 % (11.5-14.5)
[2018-04-23 12:44] LABS: ALBUMIN 3.8 GM/DL (3.2-5.2); ALBUMIN/GLOBULIN RATIO 0.95 (1.00-1.93); ALKALINE PHOSPHATASE 62 U/L (45-117); ALT/SGPT 25 U/L (12-78); ANION GAP 10 MEQ/L (8-16); AST/SGOT 24 U/L (7-37); BILIRUBIN,DIRECT < 0.1 MG/DL (0.0-0.2); BILIRUBIN,TOTAL 0.3 MG/DL (0.2-1.0); BLOOD UREA NITROGEN 15 MG/DL (7-18); CALCIUM LEVEL 8.8 MG/DL (8.5-10.1); CARBON DIOXIDE LEVEL 27 MEQ/L (21-32); CHLORIDE LEVEL 104 MEQ/L (98-107); CREATININE FOR GFR 0.81 MG/DL (0.55-1.30); GLOMERULAR FILTRATION RATE > 60.0 (>60); GLUCOSE, FASTING 95 MG/DL (70-100); HCG, SERUM QUANTITATIVE 102784 MIU/ML; LIPASE 102 U/L (73-393); POTASSIUM SERUM 3.8 MEQ/L (3.5-5.1); SODIUM LEVEL 141 MEQ/L (136-145); TOTAL PROTEIN 7.8 GM/DL (6.4-8.2)
[2018-04-23] MEDS: METOCLOPRAMIDE INJ 10MG/2ML VIAL (J2765) IV (13:44)
[2018-04-23] MEDS: NS 1,000 ML IV (13:44)
[2018-04-23 14:38] LABS: TYPE AND SCREEN 1 1
[2018-04-23] MEDS: RHOGAM 300 MCG (1500 IU) INJ (J2790) IM (15:05)
[2018-04-23 15:10] LABS: CHLAMYDIA DNA AMPLIFICATION NEGATIVE (NEGATIVE); GC DNA AMPLIFICATION NEGATIVE (NEGATIVE)
== END 2018-04-23 15:58 | disposition home or self-care (01) ==
LOC: M ED 11:05
DX: O20.0 Threatened abortion (principal); O24.111 Pre-existing type 2 diabetes mellitus, in pregnancy, first trimester; Z87.59 Personal history of other complications of pregnancy, childbirth and the puerperium; Z3A.08 8 weeks gestation of pregnancy; Z79.899 Other long term (current) drug therapy
CPT/HCPCS: J2765

== ENCOUNTER → 2018-05-11 | Outpatient (REF) | payer OTHER | LOC: M LAB REF 17:12 | DX: O26.21 Pregnancy care for patient with recurrent pregnancy loss, first trimester (principal) ==

== ENCOUNTER 2018-05-13 18:52 | Emergency (ER) | payer OTHER ==
[2018-05-13 21:19] LABS: HCG, SERUM QUANTITATIVE 48936 MIU/ML
== END 2018-05-13 21:10 | disposition home or self-care (01) ==
LOC: M ED 18:52
DX: O20.0 Threatened abortion (principal); O20.8 Other hemorrhage in early pregnancy; W01.198A Fall on same level from slipping, tripping and stumbling with subsequent striking against other object, initial encounter; Y92.89 Other specified places as the place of occurrence of the external cause; Z3A.10 10 weeks gestation of pregnancy; Z79.899 Other long term (current) drug therapy
CPT/HCPCS: 76801

== ENCOUNTER → 2018-07-07 | Outpatient (CLI) | payer OTHER | LOC: M SMT 12:58 | DX: Z36.89 Encounter for other specified antenatal screening (principal); Z3A.19 19 weeks gestation of pregnancy | CPT/HCPCS: 76811 ==

== ENCOUNTER → 2018-09-15 | Outpatient (CLI) | payer OTHER ==
[~2018-09-15] MED LIST changes: -GASTROGRAFIN SOLUTION 30ML (Q9963) As Ordered ONE; -ISOVUE-370 76% 100ML VIAL (Q9967) As Ordered ONE; +NITR100C2 PO; +ONDA4TAB6 PO; +PREN1CHW PO; +PROG200C PO; +REGL10TA6 PO; +TYLE500T78 PO
[2018-09-15 18:39] LABS: MEAN CORPUSCULAR HEMOGLOBIN 33.3 pg (27.0-33.0); MEAN CORPUSCULAR HGB CONC 34.2 g/dl (32.0-36.5); MEAN CORPUSCULAR VOLUME 97.4 fl (80.0-96.0); PLATELET COUNT, AUTOMATED 263 10^3/uL (150-450); WHITE BLOOD COUNT 14.6 10^3/uL (4.0-10.0)
== END ==
LOC: M SMT 12:57
PROVIDERS: ATTEND Advanced Practice Midwife
DX: O26.22 Pregnancy care for patient with recurrent pregnancy loss, second trimester (principal); Z36.89 Encounter for other specified antenatal screening

== ENCOUNTER → 2018-09-30 | Outpatient (REF) | payer OTHER ==
[2018-09-30 14:07] LABS: INFLUENZA A AMPLIFICATION NEGATIVE (NEGATIVE); INFLUENZA B AMPLIFICATION NEGATIVE (NEGATIVE)
== END ==
LOC: M LAB REF 13:18
PROVIDERS: ATTEND Physician Assistant
DX: J11.1 Influenza due to unidentified influenza virus with other respiratory manifestations (principal)

== ENCOUNTER → 2018-11-08 | Outpatient (REF) | payer OTHER | LOC: M LAB REF 16:53 | PROVIDERS: ATTEND Specialist | DX: Z34.83 Encounter for supervision of other normal pregnancy, third trimester (principal) ==

== ENCOUNTER 2018-11-29 07:27 | Inpatient (IN) | payer OTHER ==
[2018-11-29] VITALS (8 sets, daily range): BP systolic 115–152; BP diastolic 66–88
[~2018-11-29] VITALS: Ht 149.9 cm; Wt 67.9 kg
[2018-11-29] MEDS ORDERED: dexameTHASONE 4 MG/ML 1ML VIAL (J1100) As Ordered ONE (08:13)
[2018-11-29] MEDS ORDERED: ONDANSETRON 4MG/2ML VIAL (J2405) As Ordered ONE (08:13)
[2018-11-29] MEDS ORDERED: fentaNYL 100 MCG/2 ML INJECTION (J3010) As Ordered ONE (08:13)
[2018-11-29] MEDS ORDERED: OXYTOCIN INJ 10 UNITS/ML VIAL (J2590) As Ordered ONE (08:13)
[2018-11-29] MEDS ORDERED: MORPHINE PRES-FREE INJ 10 MG/10 ML VIAL (J2274) As Ordered ONE (08:13)
[2018-11-29] MEDS ORDERED: LR 1,000 ML IV ONE ×2 (08:30)
[2018-11-29] MEDS ORDERED: BICITRA 30ML SOLN UDC PO ONE (08:30)
[2018-11-29] MEDS ORDERED: LR 1,000 ML IV SCH ×3 (08:30→11:00)
[2018-11-29 08:44] LABS: HEMATOCRIT 39.5 % (36.0-47.0); HEMOGLOBIN 13.6 g/dl (12.0-15.5); MEAN CORPUSCULAR HEMOGLOBIN 32.3 pg (27.0-33.0); MEAN CORPUSCULAR HGB CONC 34.4 g/dl (32.0-36.5); MEAN CORPUSCULAR VOLUME 93.8 fl (80.0-96.0); PLATELET COUNT, AUTOMATED 246 10^3/uL (150-450); RED BLOOD COUNT 4.21 10^6/uL (4.00-5.40); WHITE BLOOD COUNT 13.9 10^3/uL (4.0-10.0)
[2018-11-29] MEDS: PRENATAL VITAMINS CHEWABLE TABLET PO SCH (09:00)
[2018-11-29] MEDS: DOCUSATE SODIUM 100 MG CAP PO SCH ×2 (09:00→21:55)
[2018-11-29] MEDS ORDERED: diphenhydrAMINE INJ 50MG/ML VIAL (J1200) IV PRN (09:05)
[2018-11-29] MEDS ORDERED: NALOXONE INJ 0.4 MG/1 ML VIAL (J2310) IV PRN ×2 (09:05)
[2018-11-29] MEDS ORDERED: ONDANSETRON 4MG/2ML VIAL (J2405) IV PRN ×3 (09:05→10:45)
[2018-11-29] MEDS ORDERED: NALBUPHINE HCL 10 MG/ML AMP (J2300) IV PRN ×2 (09:05→10:45)
[2018-11-29] MEDS ORDERED: METOCLOPRAMIDE INJ 10MG/2ML VIAL (J2765) IV PRN (09:05)
[2018-11-29] MEDS ORDERED: ePHEDrine SULFATE 25 MG/5 ML(5MG/ML) SYRINGE As Ordered ONE ×2 (09:12→09:13)
[2018-11-29] MEDS ORDERED: RANI15TA PO (10:02)
--- NOTE | 2018-11-29 10:28 | NUR ---
Operative Note Date of procedure: 11/29/18 Procedure: Elective repeat low-transverse section Anesthesia: Spinal w/ Duramorph Preoperative diagnosis: 1. 39+ weeks 2. H/o LTCS x 1; declines TOLAC Postoperative diagnosis: Same as preop Indication: 39+ weeks. H/o LTCS x 1. Primary surgeon: Anders Mejia D.O., Chelsea Lamb Customer Service Advocate: Jessika Andrea CNM (essential for surgical site exposure and assistance with delivery) Estimated blood loss: 500 ml IV fluids administered: 2000 ml crystalloid Drains: Carlos catheter. Urine output: 100 ml [place] data: Apgars 8 and 9. Birthweight 3280g, 7lbs 4oz. Preoperative/prophylactic antibiotics: Ancef 2 g IV (given within 30 minutes prior to surgical start time). Intraoperative findings: Dense suprafascial adhesions. Mild to minimal intraperitoneal adhesions. Normal uterus and bilateral adnexa/ovaries. Specimen(s): none Procedure: The patient was counseled and consented on the risks, benefits, indications and alternatives of the procedure. Informed consent was obtained and placed in the c santoyo. She was taken to the operating room with an IV running. She was placed on the operating table. Spinal anesthesia was administered without any difficulty and found to be adequate. She was placed in the dorsal supine position with a leftward tilt. Sequential compression devices were placed on the lower extremities. A Carlos catheter was placed under sterile conditions. She was sterilely prepped and draped. A surgical timeout was performed per protocol. Spinal anesthesia was again found to be adequate. Using the 10 blade a Pfannenstiel incision was performed. The 10 blade was used to dissect down to the level of the rectus sheath fascia. The rectus sheath fas erlin was incised at the midline, and the fascial incision was extended with Delatorre scissors. Dl clamps were used to grasp the superior and inferior aspect of the fascial incision and the rectus muscle bellies were dissected off sharply and bluntly. The midline was identified and the rectus muscle bellies were manually . The peritoneum was identified and clamped with hemostats and elevated. The peritoneum was then incised with Metzenbaum scissors. Entry into the intraperitoneal cavity was achieved. The peritoneal opening was extended with manual stretch . There was good visualization of both the bladder and the lower uterine segment. The Mobius retractor was placed. The vesicouterine peritoneum was dissected with Metzenbaum scissors and blunt dissection. A low transverse uterine incision was made with a new 10 blade. The hysterotomy was extended with manual stretch. The amniotic sac was protruding and then artificially ruptured. Clear amniotic fluid was noted. The baby's head delivered through the hysterotomy with ease. The remainder of the body delivered with ease. The cord was doubly clamped and cut and the baby was handed off to awaiting care. See data above. Cord blood was obtained. The placenta was manually removed and noted to be fully intact. The uterus was exteriorized. The intrauterine cavity was cleared of all clot and debris with a laparotomy sponge. The hysterotomy was closed with 0 Vicryl in running, locked fashion. A second imbricating closure was performed over the initial layer closure using 0 Vicryl. The hysterotomy was noted to be hemostatic. The posterior cul-de-sac was irrigated and cleared of all clot and debris. The uterus was replaced back into the abdomen. The paracolic gutters were cleared of all clot and debris with damp laparotomy sponges. The hysterotomy is reinspected and noted to be hemostatic. Sponge, needle and instrument counts were correct. The peritoneum was closed with 3-0 Vicryl in running fashion. The rectus muscle bellies were noted to be hemostatic. The fascia was closed with 0 Vicryl in running fashion. Sponge, needle and instrument counts were again correct. The subcutaneous layer was irrigated. Small subcutaneous bleeders were cauterized with Bovie. The subcutaneous layer was reapproximated with 3-0 Vicryl in running fashion. The skin was closed with 3-0 Monocryl in subcuticular fashion. A bandage was placed over the closed incision. The final sponge, instrument and needle count was correct. She tolerated the entire procedure very well. She was transferred to the PACU in good and stable condition. Dr. Anders Mejia D.O., F.A.C.O.G
[2018-11-29] MEDS ORDERED: PROMETHAZINE 25 MG TAB PO PRN (10:30)
[2018-11-29] MEDS ORDERED: RHOGAM 300 MCG (1500 IU) INJ (J2790) IM SCH (10:30)
[2018-11-29] MEDS ORDERED: PERCOCET 5MG/325MG TAB PO PRN (10:30)
[2018-11-29] MEDS ORDERED: MEASLES,MUMPS,RUBELLA VACCINE INJ (MMR-II) (90707) SC SCH (10:30)
[2018-11-29] MEDS ORDERED: fentaNYL 100 MCG/2 ML INJECTION (J3010) IV PRN (10:45)
[2018-11-29] MEDS ORDERED: MEPERIDINE INJ 25 MG/ML VIAL (J2175) IV PRN (10:45)
[2018-11-29] MEDS ORDERED: OXYTOCIN DRIP 30 UNITS in APPROPRIATE DILUENT 1 EA IV SCH (11:00)
[2018-11-29] MEDS ORDERED: OXYTOCIN 30 UNITS IN 0.9% NaCl 500ML IV BAG (J2590) As Ordered ONE (11:18)
[2018-11-29] MEDS: PERCOCET 5MG/325MG TAB PO PRN ×2 (12:08→19:01)
[2018-11-29] MEDS: KETOROLAC 30 MG/ML VIAL (J1885) IV SCH ×2 (16:05→21:56)
[2018-11-30] MEDS: PERCOCET 5MG/325MG TAB PO PRN ×5 (00:53→21:03)
[2018-11-30 02:00] VITALS: BP 114/62
[2018-11-30] MEDS: KETOROLAC 30 MG/ML VIAL (J1885) IV SCH (04:10)
[2018-11-30 06:00] VITALS: BP 132/75
[2018-11-30 07:24] LABS: HEMATOCRIT 30.4 % (36.0-47.0); MEAN CORPUSCULAR HEMOGLOBIN 32.8 pg (27.0-33.0); MEAN CORPUSCULAR HGB CONC 34.2 g/dl (32.0-36.5); MEAN CORPUSCULAR VOLUME 95.9 fl (80.0-96.0); PLATELET COUNT, AUTOMATED 183 10^3/uL (150-450); RED BLOOD COUNT 3.17 10^6/uL (4.00-5.40); WHITE BLOOD COUNT 11.4 10^3/uL (4.0-10.0)
[2018-11-30 07:38] LABS: HEMOGLOBIN 10.4 g/dl (12.0-15.5)
[2018-11-30] MEDS: PRENATAL VITAMINS CHEWABLE TABLET PO SCH (08:40)
[2018-11-30] MEDS: DOCUSATE SODIUM 100 MG CAP PO SCH ×2 (08:40→19:42)
[2018-11-30] MEDS ORDERED: COLA100C5 PO (09:16)
[2018-11-30] MEDS ORDERED: IBUP80TA PO (09:16)
[2018-11-30] MEDS ORDERED: PERCOCET PO (09:16)
[2018-11-30 10:21] VITALS: BP 141/88
[2018-11-30] MEDS: IBUPROFEN 800 MG TAB PO SCH ×2 (11:53→19:41)
[2018-11-30 14:00] VITALS: BP 137/84
[2018-11-30 18:21] VITALS: BP 142/88
[2018-11-30 22:00] VITALS: BP 140/85
[2018-12-01] MEDS: PERCOCET 5MG/325MG TAB PO PRN ×3 (01:18→10:00)
[2018-12-01 01:52] VITALS: BP 150/77
[2018-12-01] MEDS: IBUPROFEN 800 MG TAB PO SCH ×2 (04:14→12:00)
[2018-12-01 06:06] VITALS: BP 140/91
--- NOTE | 2018-12-01 08:22 | NUR ---
Discharge Summary Date of admission: 11/29/18 Date of discharge: 12/01/18 Admitting diagnosis: 39+ weeks gestation. Discharge diagnosis: Status post repeat low transverse section. Single, liveborn delivered via . Discharge Summary: 33 year-old now P2. She was admitted on 11/29/18 at 39+ weeks EGA for a scheduled elective repeat low transverse section. The delivery was uncomplicated. The patient's intraoperative and postoperative courses were uncomplicated. By postoperative day #2, the patient was meeting al l discharge criteria. Her pain was well controlled on oral pain meds. She was ambulating without assistance, voiding spontaneously, tolerating a regular diet, and her lochia/bleeding was minimal. She denied MADRIGAL, visual changes, RUQ pain, sob, cp. Physical exam on date of discharge: Vitals: intermittent mild HTN normal HR, afebrile Heart: regular rate and rhythm with no murmurs, gallops, rubs. Lungs: clear to auscultation bilaterally, no wheezes, crackles, rales, ronchi Abd: soft, non-distended, appropriately tender. Normoactive bowel sounds. Incision: clean, dry, intact without surrounding erythema or induration. Ext: non-edematous, non-tender, negative Luis's sign bilaterally Preoperative Hgb/Hct: 13.6/39.5 Postoperative Hgb/Hct: 10.4/30.4 Assessment/Plan: 33 year-old now P2 status post elective repeat low transverse delivery on 11/29/18 now postoperative day #2. Hemodynamically stable, afebrile, with good pain control. Meeting all discharge criteria. -Routine infectious, fever, pain, and bleeding precautions reviewed -Surgical wound/incisional care / precautions reviewed. -Discharge medications: Percocet, Motrin, Colace. -Outpatient follow up in 1-2 weeks for a routine incision / postoperative check. Dr. Anders Mejia, DO, FACOG
[2018-12-01] MEDS: DOCUSATE SODIUM 100 MG CAP PO SCH (09:09)
[2018-12-01] MEDS: PRENATAL VITAMINS CHEWABLE TABLET PO SCH (09:09)
[2018-12-01 10:00] VITALS: BP 130/85
== END 2018-12-01 14:40 | disposition home or self-care (01) | DRG 540 ==
LOC: M LDI 07:27 → M OBS 11:54
PROVIDERS: ADMIT Obstetrics & Gynecology; ATTEND Obstetrics & Gynecology
PROC: 10D00Z1 Extraction of Products of Conception, Low, Open Approach (ICD-10-PCS; principal; 2018-11-29 08:30)
DX: O34.211 Maternal care for low transverse scar from previous cesarean delivery (principal); Z3A.39 39 weeks gestation of pregnancy; Z37.0 Single live birth

== ENCOUNTER → 2022-05-12 | Outpatient (REF) | payer OTHER ==
[~2022-05-12] MED LIST changes: -ASPI81TA85 PO; +ASPI81TA86 PO; +IBUP80TA PO; +PROG1CAP9 PO; -PROG200C PO
== END ==
LOC: M SFHCCLAY 16:23
PROVIDERS: ATTEND Nurse Practitioner Family
DX: Z01.419 Encounter for gynecological examination (general) (routine) without abnormal findings (principal)

== ENCOUNTER → 2022-08-19 | Outpatient (REF) | payer OTHER | LOC: M SFHCCLAY 16:00 | PROVIDERS: ATTEND Physician Assistant | DX: J02.9 Acute pharyngitis, unspecified (principal) ==

== ENCOUNTER → 2022-09-25 | Outpatient (REF) | payer OTHER ==
[2022-09-26 16:20] LABS: GC DNA AMPLIFICATION NEGATIVE (NEGATIVE)
== END ==
LOC: M SFHCCLAY 16:53
PROVIDERS: ATTEND Family Medicine
DX: Z53.9 Procedure and treatment not carried out, unspecified reason (principal)

== ENCOUNTER → 2024-09-05 | Outpatient (REF) | payer OTHER ==
[~2024-09-05] MED LIST changes: +ONDA-282 PO; -ONDA4TAB6 PO
== END ==
LOC: M SFHCCLAY 10:10
PROVIDERS: ATTEND Nurse Practitioner Family
DX: Z01.419 Encounter for gynecological examination (general) (routine) without abnormal findings (principal)

== ENCOUNTER 2025-05-29 09:25 | Emergency (ER) | payer OTHER ==
[~2025-05-29] VITALS: Ht 149.9 cm; Wt 51.5 kg
[2025-05-29 12:30] LABS: BASO # 0.0 10^3/uL (0.0-0.2); BASO % 0.2 % (0.0-1.0); EOS # 0.0 10^3/uL (0.0-0.5); EOS % 0.1 % (0.0-3.0); LYMPH # 1.6 10^3/uL (1.5-5.0); LYMPH % 13.1 % (24.0-44.0); MONO # 0.7 10^3/uL (0.0-0.8); MONO % 5.3 % (2.0-8.0); NEUTROPHILS # 10.1 10^3/uL (1.5-8.5); NEUTROPHILS % 81.1 % (36.0-66.0); PLATELET COUNT, AUTOMATED 295 10^3/uL (150-450)
[2025-05-29 12:48] LABS: CALCIUM LEVEL 9.4 MG/DL (8.5-10.1); CARBON DIOXIDE LEVEL 24 MMOL/L (20-31); CHLORIDE LEVEL 108 MMOL/L (98-107); CREATININE FOR GFR 0.78 MG/DL (0.55-1.30); GLOMERULAR FILTRATION RATE > 90.0 (>60); POTASSIUM SERUM 4.1 MMOL/L (3.5-5.1); SODIUM LEVEL 143 MMOL/L (136-145)
[2025-05-29 13:01] LABS: HCG, SERUM QUANTITATIVE 3408.7 MIU/ML (<4.2)
[2025-05-29] MEDS: RHOGAM 300MCG (1500IU) INJ IM ONE (14:58)
[2025-05-29 15:05] VITALS: BP 112/70; TEMP 98.7; O2SAT 97
== END 2025-05-29 15:14 | disposition home or self-care (01) ==
LOC: M ED 09:25
DX: O20.0 Threatened abortion (principal); Z3A.01 Less than 8 weeks gestation of pregnancy; Z91.0110 Allergy to milk products, unspecified
CPT/HCPCS: 76801; 76830; 80048; 84702; 85025; 86850; 86900; 86901; 93976; 96372; 99284; J2790

== ENCOUNTER → 2025-05-31 | Outpatient (REF) | payer OTHER | LOC: M SFHCPLAZ 15:08 | PROVIDERS: ATTEND Advanced Practice Midwife | DX: O20.9 Hemorrhage in early pregnancy, unspecified (principal); Z3A.00 Weeks of gestation of pregnancy not specified ==